=== PATIENT | female | born 1950 | race Caucasian/White ===

== ENCOUNTER → 2016-12-20 | Outpatient (CLI) | payer OTHER ==
[~2016-12-20] MED LIST: ARICEPT5 MG PO; BP MED; CYMBALTA PO; DARVOCET-N 1001 TAB; DIOVAN; DIOVAN HCT 160-1 TAB PO; LEXAPRO PO; LORTAB 10/500 T1 TAB PO; NAMENDA10 MG PO; VICODIN 5/1 TAB 5/50 PO
--- NOTE | ~2016-12-20 | MR165 ---
[facility] A Service of [facility] RADIOLOGY TEXT RESULTS PATIENT: NORM CRAWFORD LOCATION: [facility] : 46 UNIT #: [id number] AGE: [address]: Maurice Walker MD SEX: F ORDER DR: [id number] [place] [id number] O MR#: [id number] Acc #: [id number] NAME: NORM CRAWFORD : 1950 SEX: F STUDY DATE/TIME: 12/20/2016 9:19 UNIT: [facility] ROOM: STUDY DESCRIPTION: MR Shoulder Wo Contrast Rt Attending Physician: Maurice Walker M.D. Referring Physician: Maurice Walker M.D. Ordering Physician: Maurice Walker M.D. Primary Care Physician: Abigail Campbell M.D. MRI CENTER REPORT This report is preliminary unless electronic signature is present. EXAM Right shoulder MRI without contrast 12/20/2016 HISTORY 66-year-old female with right shoulder pain and weakness for 3 months. No prior right shoulder surgery COMPARISON Right shoulder x-rays 11/08/2016 and 06/20/2010 TECHNIQUE Routine unenhanced multiplanar, multisequence high field MR imaging of the right shoulder was performed. FINDINGS There is [id number] supraspinatus and infraspinatus tendinopathy. There is some minimal partial thickness bursal surface fraying of the far anterior insertional supraspinatus tendon. However, this involves less than 10% of the tendon thickness. Teres minor and subscapularis tendons are intact. Long biceps tendon is intact and well positioned in the bicipital groove. No evidence of a labral tear. Glenohumeral articular cartilage is intact. No glenohumeral effusion. Mild degeneration of the acromioclavicular joint. No significant subacromial spur. There is mild inflammation of the subacromial/subdeltoid bursa. Bone marrow signal is within expected limits. Visualized musculature is unremarkable. IMPRESSION [facility] A Service of [facility] RADIOLOGY TEXT RESULTS PATIENT: NORM CRAWFORD LOCATION: [facility] : 46 UNIT #: [id number] AGE: [address]: Maurice Walker MD SEX: F ORDER DR: 1. [id number]-jh-kiqsqgce supraspinatus and infraspinatus tendinopathy. There is some minimal partial thickness bursal surface fraying of the far anterior insertional supraspinatus tendon. However, this involves less than 10% of the tendon thickness. 2. No significant labral pathology. 3. Mild acromioclavicular joint arthrosis. 4. Mild inflammation of the subacromial/subdeltoid bursa Dictated by... Klaus Vazquez M.D. THIS IS AN ELECTRONICALLY VERIFIED REPORT Klaus Vazquez M.D. at 12/22/2016 5:19 PM LEA/masha TD: 12/21/2016 13:18 JOB #: [id number] [facility] REPORT Page 1 of 1
== END | disposition home or self-care (01) ==
LOC: SMRI 08:52
DX: M25.511 Pain in right shoulder (principal); M75.81 Other shoulder lesions, right shoulder; M19.011 Primary osteoarthritis, right shoulder; M75.51 Bursitis of right shoulder
CPT/HCPCS: 73221